=== PATIENT | male | born 1980 ===

== ENCOUNTER 2017-06-29 15:45 | Emergency (ER) | payer MEDICAID ==
--- NOTE | 2017-06-29 16:24 | ER Report ---
History and Physical Time Seen By MD: 16:23 Hx. of Stated Complaint: patient states that he is having Ulcerative colitis flare up states that he needs prednisone HPI/ROS CHIEF COMPLAINT: Bloody diarrhea HISTORY OF PRESENT ILLNESS: 37-year-old male with a history of ulcerative colitis presents with approximate 10 days of bloody diarrhea. He states he was taking medications for his ulcerative colitis up until 2 weeks ago when he ran out. She denies any abdominal pain, nausea, vomiting. He reports several episodes of bloody diarrhea daily. He states this is similar to his previous ulcerative colitis exacerbations. REVIEW OF SYSTEMS: Constitutional: No fever, no chills. Eyes: No discharge. ENT: No sore throat. Cardiovascular: No chest pain, no palpitations. Respiratory: No cough, no shortness of breath. Gastrointestinal: As above Genitourinary: No hematuria. Musculoskeletal: No back pain. Skin: No rashes. Neurological: No headache. Allergies: Coded Allergies: No Known Drug Allergies (Unverified , 06/29/17) Home Meds No Active Prescriptions or Reported Meds Past Medical/Surgical History Ulcerative colitis Hx Substance Use Disorder: Yes (occ. pot) Hx Alcohol Use: No Constitutional Vital Sign - Last 24 Hours 06/29/17 06/29/17 06/29/17 06/29/17 15:47 15:50 16:00 16:10 Temp 98.3 Pulse 91 Resp 19 B/P (MAP) 117/81 (93) 117/81 118/78 (91) 113/77 (89) Pulse Ox 95 O2 Delivery Room Air 06/29/17 06/29/17 06/29/17 06/29/17 16:15 16:20 16:50 17:00 Pulse 93 99 91 B/P (MAP) 106/70 (82) Pulse Ox 96 95 96 06/29/17 06/29/17 06/29/17 17:05 17:30 17:35 Pulse 87 85 B/P (MAP) 102/71 (81) Pulse Ox 97 Physical Exam General Appearance: The patient is alert, has no immediate need for airway protection and no signs of toxicity. Eyes: Pupils equal and round no pallor or injection. ENT, Mouth: Mucous membranes are dry. Cardiovascular: Regular rate and rhythm. Gastrointestinal: Abdomen is soft and non tender, no masses. Neurological: Alert and oriented 3. Skin: Warm and dry, no rashes. [ ] DIFFERENTIAL DIAGNOSIS: After history and physical exam differential diagnosis was considered for lower GI bleeding including but not limited to inflammatory bowel disease disease, diverticulosis, tumor, AVM, hemorrhoid and anal fissure. Medical Decision Making Data Points Result Diagram: 06/29/17 1635 06/29/17 1635 Laboratory Hematology Test 06/29/17 16:35 Red Blood Count 4.61 M/uL (4.00-5.60) Mean Corpuscular Volume 85.0 fL (80.0-96.0) Mean Corpuscular Hemoglobin 29.9 pg (26.0-33.0) Mean Corpuscular Hemoglobin Concent 35.2 g/dL (32.0-36.0) Red Cell Distribution Width 13.9 % (11.5-14.5) Mean Platelet Volume 7.0 fL (7.2-11.1) Neutrophils (%) (Auto) 76.3 % (39.4-72.5) Lymphocytes (%) (Auto) 11.9 % (17.6-49.6) Monocytes (%) (Auto) 10.3 % (4.1-12.4) Eosinophils (%) (Auto) 0.9 % (0.4-6.7) Basophils (%) (Auto) 0.6 % (0.3-1.4) Nucleated RBC Relative Count (auto) 0.0 /100WBC Neutrophils # (Auto) 12.9 K/uL (2.0-7.4) Lymphocytes # (Auto) 2.0 K/uL (1.3-3.6) Monocytes # (Auto) 1.7 K/uL (0.3-1.0) Eosinophils # (Auto) 0.2 K/uL (0.0-0.5) Basophils # (Auto) 0.1 K/uL (0.0-0.1) Nucleated RBC Absolute Count (auto) 0.00 K/uL Sodium Level 137 mmol/L (137-145) Potassium Level 3.6 mmol/L (3.5-5.0) Chloride Level 97 mmol/L (98-107) Carbon Dioxide Level 29 mmol/L (22-30) Blood Urea Nitrogen 14 mg/dl (9-21) Creatinine 0.90 mg/dl (0.66-1.25) Glomerular Filtration Rate Calc > 60.0 Random Glucose 106 mg/dl (75-110) Calcium Level 8.6 mg/dl (8.4-10.2) Magnesium Level 1.9 mg/dl (1.7-2.2) Total Bilirubin 0.2 mg/dl (0.2-1.3) Aspartate Amino Transf (AST/SGOT) 18 U/L (0-35) Alanine Aminotransferase (ALT/SGPT) 24 U/L (0-56) Alkaline Phosphatase 87 U/L (0-126) Total Protein 6.5 gm/dl (6.3-8.2) Albumin 3.3 g/dl (3.5-5.0) Chemistry Test 06/29/17 16:35 White Blood Count 16.9 k/uL (4.5-11.0) Red Blood Count 4.61 M/uL (4.00-5.60) Hemoglobin 13.8 g/dL (14.0-18.0) Hematocrit 39.2 % (42.0-52.0) Mean Corpuscular Volume 85.0 fL (80.0-96.0) Mean Corpuscular Hemoglobin 29.9 pg (26.0-33.0) Mean Corpuscular Hemoglobin Concent 35.2 g/dL (32.0-36.0) Red Cell Distribution Width 13.9 % (11.5-14.5) Platelet Count 379 K/uL (150-450) Mean Platelet Volume 7.0 fL (7.2-11.1) Neutrophils (%) (Auto) 76.3 % (39.4-72.5) Lymphocytes (%) (Auto) 11.9 % (17.6-49.6) Monocytes (%) (Auto) 10.3 % (4.1-12.4) Eosinophils (%) (Auto) 0.9 % (0.4-6.7) Basophils (%) (Auto) 0.6 % (0.3-1.4) Nucleated RBC Relative Count (auto) 0.0 /100WBC Neutrophils # (Auto) 12.9 K/uL (2.0-7.4) Lymphocytes # (Auto) 2.0 K/uL (1.3-3.6) Monocytes # (Auto) 1.7 K/uL (0.3-1.0) Eosinophils # (Auto) 0.2 K/uL (0.0-0.5) Basophils # (Auto) 0.1 K/uL (0.0-0.1) Nucleated RBC Absolute Count (auto) 0.00 K/uL Glomerular Filtration Rate Calc > 60.0 Calcium Level 8.6 mg/dl (8.4-10.2) Magnesium Level 1.9 mg/dl (1.7-2.2) Total Bilirubin 0.2 mg/dl (0.2-1.3) Aspartate Amino Transf (AST/SGOT) 18 U/L (0-35) Alanine Aminotransferase (ALT/SGPT) 24 U/L (0-56) Alkaline Phosphatase 87 U/L (0-126) Total Protein 6.5 gm/dl (6.3-8.2) Albumin 3.3 g/dl (3.5-5.0) ED Course/Re-evaluation ED Course Abdominal exam is benign. Patient has no signs of obstruction. CBC shows no significant anemia. No electrolyte abnormalities or signs of renal insufficiency on the metabolic. He was given a liter of IV fluid. States he feels better and just wants a prescription for prednisone. He was placed on a long prednisone taper beginning at 60 mg a day and tapering over the next 25 days. He states he is returning to [place] to visit his primary care doctor within that time. Patient is happy with plan. Decision to Disposition Date: Jun 29, 2017 Decision to Disposition Time: 17:26 Depart Departure Latest Vital Signs Vital Signs Date Time Temp Pulse Resp B/P (MAP) Pulse Ox O2 Delivery O2 Flow Rate FiO2 06/29/17 17:35 85 06/29/17 17:30 102/71 (81) 06/29/17 17:05 97 06/29/17 15:50 98.3 19 Room Air Impression: Primary Impression: Ulcerative colitis Condition: Improved Disposition: HOME OR SELF-CARE New Scripts No Active Prescriptions or Reported Meds Patient Instructions: Ulcerative Colitis (ED) Additional Instructions: Take prednisone as directed. Follow-up with your primary care doctor. Return to the ER if you develop lightheadedness, weakness, severe abdominal pain. Problem Qualifiers Primary Impression: Ulcerative colitis Ulcerative colitis location: unspecified ulcerative colitis location Digestive disease complication type: with rectal bleeding Qualified Codes: K51.911 - Ulcerative colitis, unspecified with rectal bleeding NA,YOVANI T MD Jun 29, 2017 16:24
[2017-06-29] MEDS ORDERED: DEXAMETHASONE SOD PHOS 10MG/ML IVP ONE (16:25)
[2017-06-29] MEDS ORDERED: NS(*) 0.9% 1000 ML BAG 1,000 ML IV ONE (16:25)
[2017-06-29 16:47] LABS: PLATELET COUNT, AUTOMATED 379 K/uL (150-450)
[2017-06-29 17:30] VITALS: BP 102/71
== END 2017-06-29 17:36 | disposition home or self-care (01) ==
LOC: ER 16:30
DX: K51.911 Ulcerative colitis, unspecified with rectal bleeding (principal)
CPT/HCPCS: 83735; 85025; 96361; 96374; 99284; J1100; J7030; 82040; 82247; 82310; 82374; 82435; 82565; 82947; 84075; 84132; 84155; 84295; 84450; 84460; 84520